=== PATIENT | male | born 1990 | race Hispanic/Latino ===

== ENCOUNTER 2016-07-13 11:35 | Emergency (ER) | payer SELFPAY ==
[2016-07-13 11:46] VITALS: TEMP 98; O2SAT 98
--- NOTE | 2016-07-13 11:58 | ED PDOC ---
HPI: General Adult Time Seen by Provider: 07/13/16 11:46 Chief Complaint (Nursing): Cough, Cold, Congestion Chief Complaint (Provider): Cough History Per: Patient History/Exam Limitations: no limitations Onset/Duration Of Symptoms: Days (1 week) Have you had recent travel within the past 21 days to any of the following countries: [place], [place], [place] or [place]?: No Current Symptoms Are (Timing): Still Present Additional Complaint(s): Cough, congestion, runny nose, nasal congestion. Yellow phlegm. Fevers before , but gone now. Takes advil, last yesterday. Also allergra and mucinex. Pt. has chest congestion and tightness after coughing a lot today. Also had a speckle of blood in sputum today 1 time. No nausea, vomit, neck pain, headaches , dyspnea, weakness, abd pain. Feels he is getting better. Similar to when he gets a cold. No dizziness. Urinating well. Past Medical History Reviewed: Nursing Documentation, Vital Signs Vital Signs: Last Vital Signs Temp 98 F 07/13/16 11:43 Pulse 90 07/13/16 11:43 Resp 20 07/13/16 11:43 BP 146/114 H 07/13/16 11:43 Pulse Ox 98 07/13/16 11:43 - Medical History PMH: No Chronic Diseases - Surgical History Surgical History: No Surg Hx - Family History Family History: States: Unknown Family Hx - Social History Current smoker - smoking cessation education provided: No Alcohol: None Drugs: Denies - Home Medications Home Medications: Ambulatory Orders Medication Instructions Recorded Ibuprofen [Motrin] 600 mg PO TID 7 Days 07/13/16 - Allergies Allergies/Adverse Reactions: Allergies Allergy/AdvReac Type Severity Reaction Status Date / Time No Known Allergies Allergy Verified 07/13/16 11:43 Review of Systems Constitutional: Positive for: Fever. Negative for: Weakness Eyes: Negative for: Vision Change, Eyelid Inflammation ENT: Positive for: Nose Pain, Nose Discharge, Nose Congestion. Negative for: Ear Pain, Ear Discharge, Mouth Swelling, Throat Pain Cardiovascular: Positive for: Chest Pain. Negative for: Palpitations Respiratory: Positive for: Cough, Sputum. Negative for: Shortness of Breath Gastrointestinal: Negative for: Nausea, Vomiting Genitourinary Male: Negative for: Dysuria Musculoskeletal: Negative for: Neck Pain, Shoulder Pain, Arm Pain, Back Pain Skin: Negative for: Rash Neurological: Negative for: Weakness, Numbness Physical Exam - Reviewed Nursing Documentation Reviewed: Yes Vital Signs Reviewed: Yes - Physical Exam Appears: Positive for: Non-toxic, No Acute Distress Head Exam: Positive for: ATRAUMATIC, NORMAL INSPECTION, NORMOCEPHALIC Skin: Positive for: Normal Color, Warm, DRY Eye Exam: Positive for: EOMI, Normal appearance, PERRL ENT: Positive for: Nasal Congestion. Negative for: Pharyngeal Erythema, Tonsillar Exudate Neck: Positive for: Normal, Painless ROM Cardiovascular/Chest: Positive for: Regular Rate, Rhythm. Negative for: Edema Respiratory: Positive for: Normal Breath Sounds. Negative for: Decreased Breath Sounds, Accessory Muscle Use, Wheezing Gastrointestinal/Abdominal: Positive for: Normal Exam, Bowel Sounds, Soft. Negative for: Tenderness Back: Positive for: Normal Inspection. Negative for: L CVA Tenderness, R CVA Tenderness Extremity: Positive for: Normal ROM. Negative for: Tenderness, Pedal Edema Neurologic/Psych: Positive for: Alert, Oriented - ECG ECG: Positive for: Interpreted By Me, Viewed By Me ECG Rhythm: Positive for: Normal QRS, Normal ST Segment, Sinus Rhythm O2 Sat by Pulse Oximetry: 98 Pulse Ox Interpretation: Normal - Progress ED Course And Treament: 1200: Stable. AAOx3. Pain free. Tolerated po. No dyspnea. Ambulated with no issues. Borderline BP elevation. Pt. to fu with clinic. Disposition - Clinical Impression Clinical Impression: URI (upper respiratory infection), HTN (hypertension) - Patient ED Disposition Is Patient to be Admitted: No Counseled Patient/Family Regarding: Studies Performed, Diagnosis, Need For Followup, Rx Given - Disposition Referrals: [facility] [Outside] - 07/17/16 Disposition: Routine/Home Disposition Time: 12:01 Condition: STABLE Additional Instructions: Your blood pressure is elevated. Make sure to follow up with the clinic in 2-3 days to recheck and possibly get further treatment. Return if not better in 3 days. Prescriptions: Ibuprofen [Motrin] 600 mg PO TID 7 Days Instructions: Upper Respiratory Infection (ED), Hypertension (ED) Forms: [employer] ([place]), [facility] ED School/Work Excuse
[2016-07-13 12:10] VITALS: RESP 18
[2016-07-13 12:14] VITALS: BP 129/86; PULSE 76
--- NOTE | 2016-07-14 09:48 | CARD ---
APPROVED REPORT EKG Measurement Heart [id number] <Conclusion> Normal sinus rhythm Normal ECG
== END 2016-07-13 12:14 | disposition home or self-care (01) ==
LOC: H.ER 11:35
DX: J06.9 Acute upper respiratory infection, unspecified (principal); I10 Essential (primary) hypertension